=== PATIENT | male | born 1995 | race Two or more races ===

== ENCOUNTER 2021-10-28 17:41 | Inpatient (IN) | payer OTHER ==
[2021-10-28 21:56] VITALS: BMI 22.9
[2021-10-29] MEDS ORDERED: NALOXONE HCL (KLOXXADO) 8 MG SPRAY NS PRN (00:12)
[2021-10-29] MEDS ORDERED: LOPERAMIDE HCL 2 MG CAPSULE PO PRN (00:12)
[2021-10-29] MEDS ORDERED: BISMUTH SUBSALICYLATE 524 MG/30 ML PO PRN (00:12)
[2021-10-29] MEDS ORDERED: BENZOCAINE/MENTHOL (CHLORASEPTIC ) LOZENGE MM PRN (00:12)
[2021-10-29] MEDS ORDERED: MAGNESIUM CITRATE 300 ML BOTTLE PO PRN (00:12)
[2021-10-29] MEDS ORDERED: MAG HYDROX/AL HYDROX/SIMETH 30 ML UNIT-DOSE CUP PO PRN (00:12)
[2021-10-29] MEDS ORDERED: ONDANSETRON *ODT* 4 MG TABLET SL PRN (00:12)
[2021-10-29] MEDS ORDERED: DICYCLOMINE HCL 10 MG CAPSULE PO PRN (00:12)
[2021-10-29] MEDS ORDERED: NICOTINE POLACRILEX 2 MG GUM BUC PRN (00:12)
[2021-10-29] MEDS ORDERED: IBUPROFEN 400 MG TABLET (FP) PO PRN (00:12)
[2021-10-29] MEDS ORDERED: ACETAMINOPHEN 325 MG TABLET (FP) PO PRN ×2 (00:12)
[2021-10-29] MEDS ORDERED: MAGNESIUM HYDROX 2400MG/30ML ORAL SUSPENSION 30 ML CUP PO PRN (00:12)
[2021-10-29] MEDS ORDERED: cloNIDine HCL 0.1 MG TABLET PO ONE (00:18)
[2021-10-29] MEDS ORDERED: cloNIDine HCL 0.1 MG TABLET ONE (00:40)
[2021-10-29] MEDS: chlordiazePOXIDE HCL 25 MG CAPSULE PO PRN ×2 (02:04→13:02)
[2021-10-29] MEDS: IBUPROFEN 600 MG TABLET (FP) PO PRN (02:05)
[2021-10-29] MEDS: METHOCARBAMOL 500 MG TABLET PO PRN ×3 (02:05→22:11)
[2021-10-29] MEDS: chlordiazePOXIDE HCL 25 MG CAPSULE PO SCH ×4 (05:55→22:11)
[2021-10-29] MEDS: PRENATAL VITAMINS W/ FOLIC ACID TABLET (FP) PO SCH (10:42)
[2021-10-29] MEDS: NICOTINE 14 MG/24 HOURS TOPICAL PATCH TD SCH (10:42)
[2021-10-29] MEDS: THIAMINE HCL 100 MG TABLET (FP) PO SCH (22:11)
[2021-10-29] MEDS: MELATONIN 5 MG TABLETS PO SCH (22:11)
[2021-10-30] MEDS: IBUPROFEN 600 MG TABLET (FP) PO PRN ×2 (02:55→18:33)
[2021-10-30] MEDS: METHOCARBAMOL 500 MG TABLET PO PRN ×3 (03:53→22:11)
[2021-10-30] MEDS: chlordiazePOXIDE HCL 25 MG CAPSULE PO SCH ×4 (06:36→22:07)
[2021-10-30] MEDS: PRENATAL VITAMINS W/ FOLIC ACID TABLET (FP) PO SCH (10:26)
[2021-10-30] MEDS: NICOTINE 14 MG/24 HOURS TOPICAL PATCH TD SCH (10:27)
[2021-10-30 13:29] LABS: HEMATOCRIT 35.4 % (35.4-49); HEMOGLOBIN 11.6 GM/dL (11.7-16.9); MCH 26.8 pg (25.7-33.7); MCHC 32.9 g/dl (32.0-35.9); MEAN CELL VOLUME 81.4 fl (80-96); MEAN PLT VOLUME 10.9 fl (7.5-11.1); PLATELET COUNT 122 10^3/uL (134-434); RBC 4.35 M/mm3 (4.00-5.60); RDW 15.5 % (11.9-15.9); WHITE BLOOD COUNT 3.4 K/mm3 (4.0-10.0)
[2021-10-30 13:34] LABS: ALBUMIN 3.5 g/dl (3.4-5.0); BLOOD UREA NITROGEN 16.7 mg/dL (7-18); CALCIUM 8.5 mg/dL (8.5-10.1)
[2021-10-30 13:36] LABS: CREATININE 0.8 mg/dL (0.55-1.3)
[2021-10-30 13:38] LABS: BILIRUBIN,TOTAL 0.9 mg/dL (0.2-1); TOT PROT 6.7 g/dl (6.4-8.2)
[2021-10-30] MEDS ORDERED: amLODIPine BESYLATE 10 MG TABLET (FP) PO ONE (13:38)
[2021-10-30] MEDS ORDERED: POTASSIUM CHLORIDE TABS 20 MEQ TABLET.ER (FP) PO ONE ×2 (13:50→20:00)
[2021-10-30] MEDS: chlordiazePOXIDE HCL 25 MG CAPSULE PO PRN (14:58)
[2021-10-30 17:36] VITALS: RESP 18
[2021-10-30] MEDS: THIAMINE HCL 100 MG TABLET (FP) PO SCH (22:07)
[2021-10-30] MEDS: MELATONIN 5 MG TABLETS PO SCH (22:07)
[2021-10-31] MEDS ORDERED: chlordiazePOXIDE HCL 10 MG CAPSULE PO PRN
[2021-10-31] MEDS: METHOCARBAMOL 500 MG TABLET PO PRN (05:05)
[2021-10-31] MEDS: chlordiazePOXIDE HCL 10 MG CAPSULE PO SCH ×2 (05:06→10:17)
[2021-10-31] MEDS: PRENATAL VITAMINS W/ FOLIC ACID TABLET (FP) PO SCH (09:53)
[2021-10-31] MEDS: NICOTINE 14 MG/24 HOURS TOPICAL PATCH TD SCH (09:54)
[2021-10-31] MEDS ORDERED: amLODIPine BESYLATE 5 MG TABLET (FP) PO SCH (10:00)
[2021-10-31 13:02] VITALS: BP 154/100; PULSE 104; TEMP 98.6
[2021-11-01] MEDS ORDERED: chlordiazePOXIDE HCL 10 MG CAPSULE PO SCH (05:00)
[2021-11-02] MEDS ORDERED: chlordiazePOXIDE HCL 10 MG CAPSULE PO ONE (05:00)
== END 2021-10-31 13:45 | disposition left against medical advice (07) | DRG 770 ==
LOC: YASAS 17:41 → Y3N 10-29 01:19
PROVIDERS: ADMIT Allergy & Immunology; ATTEND Psychiatry & Neurology Addiction Medicine
PROC: HZ2ZZZZ Detoxification Services for Substance Abuse Treatment (ICD-10-PCS; principal; 2021-10-29)
DX: F10.230 Alcohol dependence with withdrawal, uncomplicated (principal); F19.280 Other psychoactive substance dependence with psychoactive substance-induced anxiety disorder; F90.9 Attention-deficit hyperactivity disorder, unspecified type; D69.6 Thrombocytopenia, unspecified; E87.6 Hypokalemia; I10 Essential (primary) hypertension; R73.9 Hyperglycemia, unspecified; Z87.19 Personal history of other diseases of the digestive system
CPT/HCPCS: 36415; 80053; 82947; 83036; 84132; 85027; 86780; C9803-CS; Q0162; U0003; U0005

== ENCOUNTER 2021-11-12 03:03 | Inpatient (IN) | payer OTHER ==
[2021-11-12 03:19] VITALS: BMI 22.1
[2021-11-12] MEDS ORDERED: BISMUTH SUBSALICYLATE 524 MG/30 ML PO PRN (07:24)
[2021-11-12] MEDS ORDERED: IBUPROFEN 400 MG TABLET (FP) PO PRN (07:24)
[2021-11-12] MEDS ORDERED: NICOTINE POLACRILEX 2 MG GUM BUC PRN (07:24)
[2021-11-12] MEDS ORDERED: MAGNESIUM CITRATE 300 ML BOTTLE PO PRN (07:24)
[2021-11-12] MEDS ORDERED: NALOXONE HCL (KLOXXADO) 8 MG SPRAY NS PRN (07:24)
[2021-11-12] MEDS ORDERED: ACETAMINOPHEN 325 MG TABLET (FP) PO PRN (07:24)
[2021-11-12] MEDS ORDERED: MAGNESIUM HYDROX 2400MG/30ML ORAL SUSPENSION 30 ML CUP PO PRN (07:24)
[2021-11-12] MEDS ORDERED: LOPERAMIDE HCL 2 MG CAPSULE PO PRN (07:24)
[2021-11-12] MEDS ORDERED: DICYCLOMINE HCL 10 MG CAPSULE PO PRN (07:24)
[2021-11-12] MEDS ORDERED: MAG HYDROX/AL HYDROX/SIMETH 30 ML UNIT-DOSE CUP PO PRN (07:24)
[2021-11-12] MEDS ORDERED: BENZOCAINE/MENTHOL (CHLORASEPTIC ) LOZENGE MM PRN (07:24)
[2021-11-12] MEDS ORDERED: ONDANSETRON *ODT* 4 MG TABLET SL PRN (07:24)
[2021-11-12] MEDS ORDERED: cloNIDine HCL 0.1 MG TABLET PO ONE (07:29)
[2021-11-12] MEDS: PRENATAL VITAMINS W/ FOLIC ACID TABLET (FP) PO SCH (09:21)
[2021-11-12] MEDS: NICOTINE 14 MG/24 HOURS TOPICAL PATCH TD SCH (09:21)
[2021-11-12] MEDS ORDERED: diazePAM 5 MG TABLET ONE (11:08)
[2021-11-12] MEDS: diazePAM 5 MG TABLET PO SCH ×3 (11:10→23:20)
[2021-11-12] MEDS: IBUPROFEN 600 MG TABLET (FP) PO PRN (12:13)
[2021-11-12] MEDS: METHOCARBAMOL 500 MG TABLET PO PRN (12:13)
[2021-11-12] MEDS: diazePAM 5 MG TABLET PO PRN ×2 (15:04→21:51)
[2021-11-12] MEDS: THIAMINE HCL 100 MG TABLET (FP) PO SCH (21:51)
[2021-11-12] MEDS: MELATONIN 5 MG TABLETS PO SCH (21:51)
[2021-11-13] MEDS: diazePAM 5 MG TABLET PO SCH ×4 (05:46→22:38)
[2021-11-13] MEDS: PRENATAL VITAMINS W/ FOLIC ACID TABLET (FP) PO SCH (10:42)
[2021-11-13] MEDS: cloNIDine HCL 0.1 MG TABLET PO SCH (10:43)
[2021-11-13] MEDS: NICOTINE 14 MG/24 HOURS TOPICAL PATCH TD SCH (10:44)
[2021-11-13 11:16] LABS: HEMATOCRIT 35.9 % (35.4-49); HEMOGLOBIN 11.4 GM/dL (11.7-16.9); MCH 26.4 pg (25.7-33.7); MCHC 31.8 g/dl (32.0-35.9); MEAN PLT VOLUME 8.8 fl (7.5-11.1); PLATELET COUNT 130 10^3/uL (134-434); RBC 4.33 M/mm3 (4.00-5.60); RDW 18.1 % (11.9-15.9); WHITE BLOOD COUNT 3.1 K/mm3 (4.0-10.0)
[2021-11-13 11:45] LABS: ALBUMIN 3.1 g/dl (3.4-5.0); BLOOD UREA NITROGEN 18.4 mg/dL (7-18); CALCIUM 8.9 mg/dL (8.5-10.1)
[2021-11-13 11:47] LABS: CREATININE 0.8 mg/dL (0.55-1.3)
[2021-11-13 11:49] LABS: BILIRUBIN,TOTAL 0.6 mg/dL (0.2-1)
[2021-11-13] MEDS: diazePAM 5 MG TABLET PO PRN ×2 (12:29→17:00)
[2021-11-13 12:37] LABS: HIV INTERPRETATION NEGATIVE (NEGATIVE)
[2021-11-13] MEDS: IBUPROFEN 600 MG TABLET (FP) PO PRN (16:59)
[2021-11-13] MEDS: THIAMINE HCL 100 MG TABLET (FP) PO SCH (22:34)
[2021-11-13] MEDS: METHOCARBAMOL 500 MG TABLET PO PRN (22:36)
[2021-11-13] MEDS: MELATONIN 5 MG TABLETS PO SCH (22:37)
[2021-11-14] MEDS: diazePAM 5 MG TABLET PO SCH ×3 (05:51→22:23)
[2021-11-14] MEDS ORDERED: POTASSIUM CHLORIDE ORAL LIQUID 20 MEQ/15 ML PO ONE (09:13)
[2021-11-14] MEDS: PRENATAL VITAMINS W/ FOLIC ACID TABLET (FP) PO SCH (10:12)
[2021-11-14] MEDS: cloNIDine HCL 0.1 MG TABLET PO SCH (10:12)
[2021-11-14] MEDS: NICOTINE 14 MG/24 HOURS TOPICAL PATCH TD SCH (10:12)
[2021-11-14] MEDS: diazePAM 5 MG TABLET PO PRN ×2 (11:37→17:10)
[2021-11-14] MEDS: ACETAMINOPHEN 325 MG TABLET (FP) PO PRN (14:00)
[2021-11-14] MEDS: THIAMINE HCL 100 MG TABLET (FP) PO SCH (22:23)
[2021-11-14] MEDS: MELATONIN 5 MG TABLETS PO SCH (22:23)
[2021-11-14] MEDS: METHOCARBAMOL 500 MG TABLET PO PRN (22:23)
[2021-11-15] MEDS: diazePAM 5 MG TABLET PO SCH ×2 (06:09→18:11)
[2021-11-15] MEDS: PRENATAL VITAMINS W/ FOLIC ACID TABLET (FP) PO SCH (10:47)
[2021-11-15] MEDS: cloNIDine HCL 0.1 MG TABLET PO SCH (10:47)
[2021-11-15] MEDS: NICOTINE 14 MG/24 HOURS TOPICAL PATCH TD SCH (10:51)
[2021-11-15] MEDS ORDERED: hydrOXYzine PAMOATE 25 MG CAPSULE (FP) PO ONE (13:20)
[2021-11-15 17:05] VITALS: RESP 18
[2021-11-15] MEDS: ACETAMINOPHEN 325 MG TABLET (FP) PO PRN (18:12)
[2021-11-15] MEDS: THIAMINE HCL 100 MG TABLET (FP) PO SCH (22:19)
[2021-11-15] MEDS: MELATONIN 5 MG TABLETS PO SCH (22:19)
[2021-11-15] MEDS: METHOCARBAMOL 500 MG TABLET PO PRN (22:20)
[2021-11-16] MEDS ORDERED: diazePAM 5 MG TABLET PO ONE (06:00)
[2021-11-16 09:38] VITALS: BP 122/83; PULSE 70; TEMP 97.6
[2021-11-16] MEDS: cloNIDine HCL 0.1 MG TABLET PO SCH (10:57)
[2021-11-16] MEDS: PRENATAL VITAMINS W/ FOLIC ACID TABLET (FP) PO SCH (10:57)
[2021-11-16] MEDS: NICOTINE 14 MG/24 HOURS TOPICAL PATCH TD SCH (10:57)
== END 2021-11-16 13:44 | disposition home or self-care (01) | DRG 775 ==
LOC: SUATTDRO 03:03 → YASAS 03:03 → Y6N 10:45
PROVIDERS: ADMIT Allergy & Immunology; ATTEND Surgery
PROC: HZ2ZZZZ Detoxification Services for Substance Abuse Treatment (ICD-10-PCS; principal; 2021-11-12)
DX: F10.230 Alcohol dependence with withdrawal, uncomplicated (principal); F17.210 Nicotine dependence, cigarettes, uncomplicated; F19.280 Other psychoactive substance dependence with psychoactive substance-induced anxiety disorder; F41.9 Anxiety disorder, unspecified; F90.9 Attention-deficit hyperactivity disorder, unspecified type; I10 Essential (primary) hypertension; Z87.19 Personal history of other diseases of the digestive system
CPT/HCPCS: 36415; 80053; 82962; 84132; 85027; 86780; 87389; C9803-CS; U0003; U0005

== ENCOUNTER 2021-11-17 10:27 | Inpatient (IN) | payer OTHER ==
[2021-11-17 11:08] VITALS: BMI 22.9
[2021-11-17] MEDS ORDERED: MAG HYDROX/AL HYDROX/SIMETH 30 ML UNIT-DOSE CUP PO PRN (11:28)
[2021-11-17] MEDS ORDERED: MAGNESIUM CITRATE 300 ML BOTTLE PO PRN (11:28)
[2021-11-17] MEDS ORDERED: P-EPHED 60MG/TRIPROLIDI 2.5MG TABLET PO PRN (11:28)
[2021-11-17] MEDS ORDERED: guaiFENesin 200 MG/10 ML 10 ML UNIT-DOSE CUPS PO PRN (11:28)
[2021-11-17] MEDS ORDERED: LOPERAMIDE HCL 2 MG CAPSULE PO PRN (11:28)
[2021-11-17] MEDS: NICOTINE 7 MG/24 HOURS TOPICAL PATCH TD SCH (14:42)
[2021-11-17] MEDS: PRENATAL VITAMINS W/ FOLIC ACID TABLET (FP) PO SCH (14:42)
[2021-11-17] MEDS: IBUPROFEN 400 MG TABLET (FP) PO PRN (14:46)
[2021-11-17] MEDS: hydrOXYzine PAMOATE 25 MG CAPSULE (FP) PO PRN ×2 (14:47→21:12)
[2021-11-17] MEDS: NICOTINE 10 MG CARTRIDGE (INHALER) IH PRN (16:56)
[2021-11-17] MEDS: MELATONIN 5 MG TABLETS PO SCH (21:12)
[2021-11-17] MEDS: THIAMINE HCL 100 MG TABLET (FP) PO SCH (21:12)
[2021-11-17] MEDS: cloNIDine HCL 0.1 MG TABLET PO SCH (21:12)
[2021-11-18] MEDS ORDERED: DEXTROAMPHETAMINE/AMPHETAMINE 10 MG CAP.ER.24H PO SCH (07:00)
[2021-11-18] MEDS: PRENATAL VITAMINS W/ FOLIC ACID TABLET (FP) PO SCH (10:01)
[2021-11-18] MEDS: cloNIDine HCL 0.1 MG TABLET PO SCH ×2 (10:02→21:02)
[2021-11-18] MEDS: NICOTINE 7 MG/24 HOURS TOPICAL PATCH TD SCH (10:03)
[2021-11-18] MEDS: hydrOXYzine PAMOATE 25 MG CAPSULE (FP) PO PRN ×2 (14:33→21:02)
[2021-11-18] MEDS: ACETAMINOPHEN 325 MG TABLET (FP) PO PRN (14:33)
[2021-11-18] MEDS: IBUPROFEN 400 MG TABLET (FP) PO PRN (18:08)
[2021-11-18] MEDS: NICOTINE 10 MG CARTRIDGE (INHALER) IH PRN (18:57)
[2021-11-18] MEDS: MELATONIN 5 MG TABLETS PO SCH (21:02)
[2021-11-18] MEDS: THIAMINE HCL 100 MG TABLET (FP) PO SCH (21:02)
[2021-11-19] MEDS: cloNIDine HCL 0.1 MG TABLET PO SCH ×2 (09:52→21:24)
[2021-11-19] MEDS: NICOTINE 7 MG/24 HOURS TOPICAL PATCH TD SCH (09:52)
[2021-11-19] MEDS: PRENATAL VITAMINS W/ FOLIC ACID TABLET (FP) PO SCH (09:52)
[2021-11-19] MEDS: hydrOXYzine PAMOATE 25 MG CAPSULE (FP) PO PRN ×3 (09:53→21:24)
[2021-11-19 10:12] LABS: PH,URINE 7.5 (5.0-8.0); URINE APPEARANCE CLEAR; URINE BILIRUBIN NEGATIVE (NEGATIVE); URINE COLOR YELLOW; URINE GLUCOSE (UA) NEGATIVE (NEGATIVE); URINE KETONE NEGATIVE (NEGATIVE); URINE LEUK ESTERASE NEGATIVE (NEGATIVE); URINE NITRITE NEGATIVE (NEGATIVE); URINE PROTEIN NEGATIVE (NEGATIVE); URINE UROBILINOGEN 0.2 mg/dL (0.2-1.0)
[2021-11-19] MEDS: NICOTINE 10 MG CARTRIDGE (INHALER) IH PRN (13:32)
[2021-11-19] MEDS: THIAMINE HCL 100 MG TABLET (FP) PO SCH (21:24)
[2021-11-19] MEDS: MELATONIN 5 MG TABLETS PO SCH (21:24)
[2021-11-19] MEDS: IBUPROFEN 400 MG TABLET (FP) PO PRN (22:24)
[2021-11-20] MEDS: hydrOXYzine PAMOATE 25 MG CAPSULE (FP) PO PRN ×3 (09:47→21:31)
[2021-11-20] MEDS: PRENATAL VITAMINS W/ FOLIC ACID TABLET (FP) PO SCH (09:47)
[2021-11-20] MEDS: NICOTINE 7 MG/24 HOURS TOPICAL PATCH TD SCH (09:47)
[2021-11-20] MEDS: ACETAMINOPHEN 325 MG TABLET (FP) PO PRN (09:48)
[2021-11-20] MEDS: cloNIDine HCL 0.1 MG TABLET PO SCH ×2 (09:48→21:31)
[2021-11-20] MEDS: MAGNESIUM HYDROX 2400MG/30ML ORAL SUSPENSION 30 ML CUP PO PRN (09:50)
[2021-11-20] MEDS ORDERED: METHOCARBAMOL 500 MG TABLET PO ONE (13:15)
[2021-11-20] MEDS: MELATONIN 5 MG TABLETS PO SCH (21:31)
[2021-11-20] MEDS: THIAMINE HCL 100 MG TABLET (FP) PO SCH (21:31)
[2021-11-20] MEDS: IBUPROFEN 400 MG TABLET (FP) PO PRN (21:33)
[2021-11-21] MEDS: NICOTINE 7 MG/24 HOURS TOPICAL PATCH TD SCH (10:21)
[2021-11-21] MEDS: cloNIDine HCL 0.1 MG TABLET PO SCH ×2 (10:21→21:43)
[2021-11-21] MEDS: PRENATAL VITAMINS W/ FOLIC ACID TABLET (FP) PO SCH (10:21)
[2021-11-21] MEDS: hydrOXYzine PAMOATE 25 MG CAPSULE (FP) PO PRN ×3 (10:22→21:43)
[2021-11-21] MEDS: BUPRENORPHINE/NALOXONE 4 MG/1 MG FILM PACKET SL SCH (13:26)
[2021-11-21] MEDS: NICOTINE 10 MG CARTRIDGE (INHALER) IH PRN (14:54)
[2021-11-21] MEDS: MELATONIN 5 MG TABLETS PO SCH (21:43)
[2021-11-21] MEDS: THIAMINE HCL 100 MG TABLET (FP) PO SCH (21:43)
[2021-11-21] MEDS: METHOCARBAMOL 500 MG TABLET PO PRN (21:44)
[2021-11-22] MEDS: hydrOXYzine PAMOATE 25 MG CAPSULE (FP) PO PRN ×4 (06:36→21:31)
[2021-11-22] MEDS: cloNIDine HCL 0.1 MG TABLET PO SCH ×2 (10:22→21:30)
[2021-11-22] MEDS: PRENATAL VITAMINS W/ FOLIC ACID TABLET (FP) PO SCH (10:22)
[2021-11-22] MEDS: BUPRENORPHINE/NALOXONE 4 MG/1 MG FILM PACKET SL SCH (10:22)
[2021-11-22] MEDS: NICOTINE 7 MG/24 HOURS TOPICAL PATCH TD SCH (10:22)
[2021-11-22] MEDS: NICOTINE 10 MG CARTRIDGE (INHALER) IH PRN ×2 (16:22→23:05)
[2021-11-22] MEDS: ACETAMINOPHEN 325 MG TABLET (FP) PO PRN (16:48)
[2021-11-22] MEDS: MELATONIN 5 MG TABLETS PO SCH (21:29)
[2021-11-22] MEDS: THIAMINE HCL 100 MG TABLET (FP) PO SCH (21:29)
[2021-11-22] MEDS: METHOCARBAMOL 500 MG TABLET PO PRN (21:30)
[2021-11-23] MEDS: IBUPROFEN 400 MG TABLET (FP) PO PRN (06:48)
[2021-11-23] MEDS: hydrOXYzine PAMOATE 25 MG CAPSULE (FP) PO PRN ×4 (06:49→21:25)
[2021-11-23] MEDS: BUPRENORPHINE/NALOXONE 4 MG/1 MG FILM PACKET SL SCH (09:56)
[2021-11-23] MEDS: PRENATAL VITAMINS W/ FOLIC ACID TABLET (FP) PO SCH (09:56)
[2021-11-23] MEDS: NICOTINE 10 MG CARTRIDGE (INHALER) IH PRN ×3 (09:56→19:08)
[2021-11-23] MEDS: NICOTINE 7 MG/24 HOURS TOPICAL PATCH TD SCH (09:56)
[2021-11-23] MEDS: cloNIDine HCL 0.1 MG TABLET PO SCH (09:58)
[2021-11-23] MEDS: METHOCARBAMOL 500 MG TABLET PO PRN (21:25)
[2021-11-23] MEDS: THIAMINE HCL 100 MG TABLET (FP) PO SCH (21:25)
[2021-11-23] MEDS ORDERED: SUVOREXANT 10 MG TABLET PO PRN (22:00)
[2021-11-24] MEDS: PRENATAL VITAMINS W/ FOLIC ACID TABLET (FP) PO SCH (10:08)
[2021-11-24] MEDS: NICOTINE 7 MG/24 HOURS TOPICAL PATCH TD SCH (10:08)
[2021-11-24] MEDS: hydrOXYzine PAMOATE 25 MG CAPSULE (FP) PO PRN ×3 (10:09→21:26)
[2021-11-24] MEDS: BUPRENORPHINE/NALOXONE 4 MG/1 MG FILM PACKET SL SCH ×2 (10:09→17:07)
[2021-11-24] MEDS: NICOTINE 10 MG CARTRIDGE (INHALER) IH PRN ×2 (10:09→18:32)
[2021-11-24] MEDS: METHOCARBAMOL 500 MG TABLET PO PRN (21:26)
[2021-11-24] MEDS: cloNIDine HCL 0.1 MG TABLET PO PRN (21:26)
[2021-11-24] MEDS: THIAMINE HCL 100 MG TABLET (FP) PO SCH (21:26)
[2021-11-24 22:47] VITALS: RESP 18
[2021-11-25] MEDS: NICOTINE 10 MG CARTRIDGE (INHALER) IH PRN ×3 (08:52→22:17)
[2021-11-25] MEDS: PRENATAL VITAMINS W/ FOLIC ACID TABLET (FP) PO SCH (10:06)
[2021-11-25] MEDS: NICOTINE 7 MG/24 HOURS TOPICAL PATCH TD SCH (10:06)
[2021-11-25] MEDS: BUPRENORPHINE/NALOXONE 4 MG/1 MG FILM PACKET SL SCH ×2 (10:07→16:35)
[2021-11-25] MEDS: hydrOXYzine PAMOATE 25 MG CAPSULE (FP) PO PRN ×3 (10:07→21:29)
[2021-11-25] MEDS: MAGNESIUM HYDROX 2400MG/30ML ORAL SUSPENSION 30 ML CUP PO PRN (10:08)
[2021-11-25] MEDS: SUVOREXANT 15 MG TABLET PO PRN (21:28)
[2021-11-25] MEDS: METHOCARBAMOL 500 MG TABLET PO PRN (21:29)
[2021-11-25] MEDS: THIAMINE HCL 100 MG TABLET (FP) PO SCH (21:29)
[2021-11-26] MEDS: hydrOXYzine PAMOATE 25 MG CAPSULE (FP) PO PRN ×4 (06:48→21:22)
[2021-11-26] MEDS: MAGNESIUM HYDROX 2400MG/30ML ORAL SUSPENSION 30 ML CUP PO PRN (06:49)
[2021-11-26] MEDS: NICOTINE 10 MG CARTRIDGE (INHALER) IH PRN ×4 (08:40→23:01)
[2021-11-26] MEDS: PRENATAL VITAMINS W/ FOLIC ACID TABLET (FP) PO SCH (10:12)
[2021-11-26] MEDS: BUPRENORPHINE/NALOXONE 4 MG/1 MG FILM PACKET SL SCH ×2 (10:13→17:33)
[2021-11-26] MEDS: NICOTINE 7 MG/24 HOURS TOPICAL PATCH TD SCH (10:13)
[2021-11-26] MEDS: THIAMINE HCL 100 MG TABLET (FP) PO SCH (21:21)
[2021-11-26] MEDS: METHOCARBAMOL 500 MG TABLET PO PRN (21:21)
[2021-11-26] MEDS: SUVOREXANT 15 MG TABLET PO PRN (21:23)
[2021-11-26] MEDS: cloNIDine HCL 0.1 MG TABLET PO PRN (21:23)
[2021-11-27] MEDS: NICOTINE 10 MG CARTRIDGE (INHALER) IH PRN ×3 (07:17→21:32)
[2021-11-27] MEDS: BUPRENORPHINE/NALOXONE 4 MG/1 MG FILM PACKET SL SCH ×2 (09:56→16:51)
[2021-11-27] MEDS: PRENATAL VITAMINS W/ FOLIC ACID TABLET (FP) PO SCH (09:56)
[2021-11-27] MEDS: hydrOXYzine PAMOATE 25 MG CAPSULE (FP) PO PRN ×3 (09:57→21:30)
[2021-11-27] MEDS: NICOTINE 7 MG/24 HOURS TOPICAL PATCH TD SCH (09:57)
[2021-11-27] MEDS: THIAMINE HCL 100 MG TABLET (FP) PO SCH (21:30)
[2021-11-27] MEDS: METHOCARBAMOL 500 MG TABLET PO PRN (21:30)
[2021-11-28] MEDS: ACETAMINOPHEN 325 MG TABLET (FP) PO PRN (06:45)
[2021-11-28] MEDS: cloNIDine HCL 0.1 MG TABLET PO PRN (06:46)
[2021-11-28] MEDS: NICOTINE 10 MG CARTRIDGE (INHALER) IH PRN ×4 (06:47→23:24)
[2021-11-28] MEDS: PRENATAL VITAMINS W/ FOLIC ACID TABLET (FP) PO SCH (10:24)
[2021-11-28] MEDS: NICOTINE 7 MG/24 HOURS TOPICAL PATCH TD SCH (10:24)
[2021-11-28] MEDS: hydrOXYzine PAMOATE 25 MG CAPSULE (FP) PO PRN ×3 (10:25→21:26)
[2021-11-28] MEDS: BUPRENORPHINE/NALOXONE 4 MG/1 MG FILM PACKET SL SCH ×2 (10:25→16:55)
[2021-11-28] MEDS: METHOCARBAMOL 500 MG TABLET PO PRN (21:25)
[2021-11-28] MEDS: SUVOREXANT 15 MG TABLET PO PRN (21:25)
[2021-11-28] MEDS: THIAMINE HCL 100 MG TABLET (FP) PO SCH (21:26)
[2021-11-29] MEDS: hydrOXYzine PAMOATE 25 MG CAPSULE (FP) PO PRN ×3 (06:34→21:20)
[2021-11-29] MEDS: NICOTINE 10 MG CARTRIDGE (INHALER) IH PRN ×2 (08:19→16:07)
[2021-11-29] MEDS: NICOTINE 7 MG/24 HOURS TOPICAL PATCH TD SCH (10:00)
[2021-11-29] MEDS: PRENATAL VITAMINS W/ FOLIC ACID TABLET (FP) PO SCH (10:00)
[2021-11-29] MEDS: BUPRENORPHINE/NALOXONE 4 MG/1 MG FILM PACKET SL SCH ×2 (10:00→17:31)
[2021-11-29] MEDS: THIAMINE HCL 100 MG TABLET (FP) PO SCH (21:20)
[2021-11-29] MEDS: traZODone HCL 50 MG TABLET (FP) PO SCH (21:20)
[2021-11-29] MEDS: cloNIDine HCL 0.1 MG TABLET PO PRN (21:21)
[2021-11-29] MEDS: METHOCARBAMOL 500 MG TABLET PO PRN (21:22)
[2021-11-30] MEDS: PRENATAL VITAMINS W/ FOLIC ACID TABLET (FP) PO SCH (10:00)
[2021-11-30] MEDS: NICOTINE 7 MG/24 HOURS TOPICAL PATCH TD SCH (10:00)
[2021-11-30] MEDS: BUPRENORPHINE/NALOXONE 4 MG/1 MG FILM PACKET SL SCH ×2 (10:01→17:20)
[2021-11-30] MEDS: hydrOXYzine PAMOATE 25 MG CAPSULE (FP) PO PRN ×3 (10:02→21:37)
[2021-11-30] MEDS: NICOTINE 10 MG CARTRIDGE (INHALER) IH PRN ×2 (10:04→18:09)
[2021-11-30] MEDS: METHOCARBAMOL 500 MG TABLET PO PRN (21:35)
[2021-11-30] MEDS: cloNIDine HCL 0.1 MG TABLET PO PRN (21:35)
[2021-11-30] MEDS: traZODone HCL 50 MG TABLET (FP) PO SCH (21:35)
[2021-11-30] MEDS: THIAMINE HCL 100 MG TABLET (FP) PO SCH (21:36)
[2021-12-01] MEDS: NICOTINE 10 MG CARTRIDGE (INHALER) IH PRN (06:23)
[2021-12-01] MEDS: hydrOXYzine PAMOATE 25 MG CAPSULE (FP) PO PRN ×3 (06:23→21:32)
[2021-12-01] MEDS: PRENATAL VITAMINS W/ FOLIC ACID TABLET (FP) PO SCH (10:43)
[2021-12-01] MEDS: BUPRENORPHINE/NALOXONE 4 MG/1 MG FILM PACKET SL SCH ×2 (10:44→17:18)
[2021-12-01] MEDS: NICOTINE 7 MG/24 HOURS TOPICAL PATCH TD SCH (10:44)
[2021-12-01] MEDS: traZODone HCL 50 MG TABLET (FP) PO SCH (21:31)
[2021-12-01] MEDS: METHOCARBAMOL 500 MG TABLET PO PRN (21:31)
[2021-12-01] MEDS: THIAMINE HCL 100 MG TABLET (FP) PO SCH (21:31)
[2021-12-01] MEDS: MAGNESIUM HYDROX 2400MG/30ML ORAL SUSPENSION 30 ML CUP PO PRN (21:35)
[2021-12-02] MEDS: NICOTINE 7 MG/24 HOURS TOPICAL PATCH TD SCH (10:01)
[2021-12-02] MEDS: PRENATAL VITAMINS W/ FOLIC ACID TABLET (FP) PO SCH (10:01)
[2021-12-02] MEDS: hydrOXYzine PAMOATE 25 MG CAPSULE (FP) PO PRN ×2 (10:02→21:17)
[2021-12-02] MEDS: BUPRENORPHINE/NALOXONE 8 MG/2 MG FILM PACKET SL SCH (10:04)
[2021-12-02] MEDS: BUPRENORPHINE/NALOXONE 4 MG/1 MG FILM PACKET SL SCH (17:23)
[2021-12-02] MEDS: NICOTINE 10 MG CARTRIDGE (INHALER) IH PRN (18:43)
[2021-12-02] MEDS: THIAMINE HCL 100 MG TABLET (FP) PO SCH (21:17)
[2021-12-02] MEDS: traZODone HCL 50 MG TABLET (FP) PO SCH (21:17)
[2021-12-03] MEDS: NICOTINE 10 MG CARTRIDGE (INHALER) IH PRN ×3 (09:42→21:17)
[2021-12-03] MEDS: NICOTINE 7 MG/24 HOURS TOPICAL PATCH TD SCH (10:13)
[2021-12-03] MEDS: BUPRENORPHINE/NALOXONE 8 MG/2 MG FILM PACKET SL SCH (10:13)
[2021-12-03] MEDS: hydrOXYzine PAMOATE 25 MG CAPSULE (FP) PO PRN ×3 (10:13→21:16)
[2021-12-03] MEDS: PRENATAL VITAMINS W/ FOLIC ACID TABLET (FP) PO SCH (10:13)
[2021-12-03] MEDS: BUPRENORPHINE/NALOXONE 4 MG/1 MG FILM PACKET SL SCH (16:40)
[2021-12-03] MEDS: THIAMINE HCL 100 MG TABLET (FP) PO SCH (21:16)
[2021-12-03] MEDS: traZODone HCL 50 MG TABLET (FP) PO SCH (21:16)
[2021-12-03] MEDS: METHOCARBAMOL 500 MG TABLET PO PRN (21:17)
[2021-12-04] MEDS: hydrOXYzine PAMOATE 25 MG CAPSULE (FP) PO PRN ×3 (10:01→21:18)
[2021-12-04] MEDS: BUPRENORPHINE/NALOXONE 8 MG/2 MG FILM PACKET SL SCH (10:01)
[2021-12-04] MEDS: NICOTINE 7 MG/24 HOURS TOPICAL PATCH TD SCH (10:01)
[2021-12-04] MEDS: PRENATAL VITAMINS W/ FOLIC ACID TABLET (FP) PO SCH (10:01)
[2021-12-04] MEDS: MAGNESIUM HYDROX 2400MG/30ML ORAL SUSPENSION 30 ML CUP PO PRN (10:04)
[2021-12-04] MEDS: NICOTINE 10 MG CARTRIDGE (INHALER) IH PRN ×3 (10:39→21:20)
[2021-12-04] MEDS: BUPRENORPHINE/NALOXONE 4 MG/1 MG FILM PACKET SL SCH (17:19)
[2021-12-04] MEDS: THIAMINE HCL 100 MG TABLET (FP) PO SCH (21:18)
[2021-12-04] MEDS: traZODone HCL 50 MG TABLET (FP) PO SCH (21:18)
[2021-12-04] MEDS: METHOCARBAMOL 500 MG TABLET PO PRN (21:19)
[2021-12-04] MEDS: cloNIDine HCL 0.1 MG TABLET PO PRN (21:46)
[2021-12-05] MEDS: NICOTINE 7 MG/24 HOURS TOPICAL PATCH TD SCH (10:15)
[2021-12-05] MEDS: PRENATAL VITAMINS W/ FOLIC ACID TABLET (FP) PO SCH (10:15)
[2021-12-05] MEDS: BUPRENORPHINE/NALOXONE 8 MG/2 MG FILM PACKET SL SCH ×2 (10:16→17:21)
[2021-12-05] MEDS: hydrOXYzine PAMOATE 25 MG CAPSULE (FP) PO PRN ×3 (10:16→21:26)
[2021-12-05] MEDS: NICOTINE 10 MG CARTRIDGE (INHALER) IH PRN ×2 (10:52→18:13)
[2021-12-05] MEDS: traZODone HCL 50 MG TABLET (FP) PO SCH (21:26)
[2021-12-05] MEDS: METHOCARBAMOL 500 MG TABLET PO PRN (21:26)
[2021-12-05] MEDS: THIAMINE HCL 100 MG TABLET (FP) PO SCH (21:26)
[2021-12-06] MEDS: NICOTINE 10 MG CARTRIDGE (INHALER) IH PRN ×3 (09:06→22:16)
[2021-12-06] MEDS: PRENATAL VITAMINS W/ FOLIC ACID TABLET (FP) PO SCH (10:01)
[2021-12-06] MEDS: NICOTINE 7 MG/24 HOURS TOPICAL PATCH TD SCH (10:01)
[2021-12-06] MEDS: hydrOXYzine PAMOATE 25 MG CAPSULE (FP) PO PRN ×3 (10:01→21:16)
[2021-12-06] MEDS: BUPRENORPHINE/NALOXONE 8 MG/2 MG FILM PACKET SL SCH ×2 (10:02→17:30)
[2021-12-06] MEDS: traZODone HCL 50 MG TABLET (FP) PO SCH (21:15)
[2021-12-06] MEDS: THIAMINE HCL 100 MG TABLET (FP) PO SCH (21:16)
[2021-12-06] MEDS: METHOCARBAMOL 500 MG TABLET PO PRN (21:16)
[2021-12-07] MEDS: PRENATAL VITAMINS W/ FOLIC ACID TABLET (FP) PO SCH (09:44)
[2021-12-07] MEDS: NICOTINE 7 MG/24 HOURS TOPICAL PATCH TD SCH (09:44)
[2021-12-07] MEDS: hydrOXYzine PAMOATE 25 MG CAPSULE (FP) PO PRN ×3 (09:44→21:16)
[2021-12-07] MEDS: NICOTINE 10 MG CARTRIDGE (INHALER) IH PRN ×3 (09:45→22:34)
[2021-12-07] MEDS: BUPRENORPHINE/NALOXONE 8 MG/2 MG FILM PACKET SL SCH ×2 (09:45→17:17)
[2021-12-07] MEDS: THIAMINE HCL 100 MG TABLET (FP) PO SCH (21:16)
[2021-12-07] MEDS: METHOCARBAMOL 500 MG TABLET PO PRN (21:17)
[2021-12-07] MEDS: traZODone HCL 50 MG TABLET (FP) PO SCH (21:17)
[2021-12-08] MEDS: NICOTINE 10 MG CARTRIDGE (INHALER) IH PRN ×3 (08:02→17:01)
[2021-12-08] MEDS: PRENATAL VITAMINS W/ FOLIC ACID TABLET (FP) PO SCH (10:09)
[2021-12-08] MEDS: hydrOXYzine PAMOATE 25 MG CAPSULE (FP) PO PRN ×3 (10:10→21:19)
[2021-12-08] MEDS: NICOTINE 7 MG/24 HOURS TOPICAL PATCH TD SCH (10:10)
[2021-12-08] MEDS: BUPRENORPHINE/NALOXONE 8 MG/2 MG FILM PACKET SL SCH ×2 (10:10→16:56)
[2021-12-08] MEDS: traZODone HCL 50 MG TABLET (FP) PO SCH (21:18)
[2021-12-08] MEDS: THIAMINE HCL 100 MG TABLET (FP) PO SCH (21:19)
[2021-12-08] MEDS: METHOCARBAMOL 500 MG TABLET PO PRN (21:19)
[2021-12-09] MEDS: PRENATAL VITAMINS W/ FOLIC ACID TABLET (FP) PO SCH (10:04)
[2021-12-09] MEDS: hydrOXYzine PAMOATE 25 MG CAPSULE (FP) PO PRN ×3 (10:04→21:13)
[2021-12-09] MEDS: BUPRENORPHINE/NALOXONE 8 MG/2 MG FILM PACKET SL SCH ×2 (10:04→17:17)
[2021-12-09] MEDS: NICOTINE 7 MG/24 HOURS TOPICAL PATCH TD SCH (10:04)
[2021-12-09] MEDS: NICOTINE 10 MG CARTRIDGE (INHALER) IH PRN ×3 (10:18→21:14)
[2021-12-09] MEDS: traZODone HCL 50 MG TABLET (FP) PO SCH (21:12)
[2021-12-09] MEDS: THIAMINE HCL 100 MG TABLET (FP) PO SCH (21:12)
[2021-12-09] MEDS: METHOCARBAMOL 500 MG TABLET PO PRN (21:13)
[2021-12-10] MEDS: NICOTINE 10 MG CARTRIDGE (INHALER) IH PRN ×3 (08:01→21:19)
[2021-12-10] MEDS: BUPRENORPHINE/NALOXONE 8 MG/2 MG FILM PACKET SL SCH ×2 (09:44→17:17)
[2021-12-10] MEDS: hydrOXYzine PAMOATE 25 MG CAPSULE (FP) PO PRN ×3 (09:44→21:18)
[2021-12-10] MEDS: PRENATAL VITAMINS W/ FOLIC ACID TABLET (FP) PO SCH (09:44)
[2021-12-10] MEDS: NICOTINE 7 MG/24 HOURS TOPICAL PATCH TD SCH (09:45)
[2021-12-10] MEDS: traZODone HCL 50 MG TABLET (FP) PO SCH (21:18)
[2021-12-10] MEDS: THIAMINE HCL 100 MG TABLET (FP) PO SCH (21:18)
[2021-12-10] MEDS: METHOCARBAMOL 500 MG TABLET PO PRN (21:18)
[2021-12-11 07:40] VITALS: TEMP 97
[2021-12-11] MEDS: NICOTINE 10 MG CARTRIDGE (INHALER) IH PRN ×2 (08:53→18:56)
[2021-12-11] MEDS: PRENATAL VITAMINS W/ FOLIC ACID TABLET (FP) PO SCH (09:38)
[2021-12-11] MEDS: NICOTINE 7 MG/24 HOURS TOPICAL PATCH TD SCH (09:39)
[2021-12-11] MEDS: hydrOXYzine PAMOATE 25 MG CAPSULE (FP) PO PRN ×3 (09:39→21:22)
[2021-12-11] MEDS: BUPRENORPHINE/NALOXONE 8 MG/2 MG FILM PACKET SL SCH ×2 (09:39→17:39)
[2021-12-11 21:12] VITALS: BP 142/92; PULSE 100
[2021-12-11] MEDS: METHOCARBAMOL 500 MG TABLET PO PRN (21:22)
[2021-12-11] MEDS: traZODone HCL 50 MG TABLET (FP) PO SCH (21:22)
[2021-12-11] MEDS: THIAMINE HCL 100 MG TABLET (FP) PO SCH (21:22)
[2021-12-12] MEDS: BUPRENORPHINE/NALOXONE 8 MG/2 MG FILM PACKET SL SCH (09:40)
[2021-12-12] MEDS: PRENATAL VITAMINS W/ FOLIC ACID TABLET (FP) PO SCH (09:40)
[2021-12-12] MEDS: hydrOXYzine PAMOATE 25 MG CAPSULE (FP) PO PRN (09:41)
[2021-12-12] MEDS: NICOTINE 7 MG/24 HOURS TOPICAL PATCH TD SCH (09:41)
[2021-12-12] MEDS: NICOTINE 10 MG CARTRIDGE (INHALER) IH PRN (09:59)
== END 2021-12-12 10:17 | disposition home or self-care (01) | DRG 772 ==
LOC: YASAS 10:27 → Y5N 14:25
PROVIDERS: ADMIT Allergy & Immunology; ATTEND Psychiatry & Neurology Pain Medicine
PROC: HZ42ZZZ Group Counseling for Substance Abuse Treatment, Cognitive-Behavioral (ICD-10-PCS; principal; 2021-11-17)
DX: F11.20 Opioid dependence, uncomplicated (principal); F10.20 Alcohol dependence, uncomplicated; F17.210 Nicotine dependence, cigarettes, uncomplicated; F90.9 Attention-deficit hyperactivity disorder, unspecified type; G47.00 Insomnia, unspecified; I10 Essential (primary) hypertension; Z87.19 Personal history of other diseases of the digestive system; Z56.0 Unemployment, unspecified; Z59.01 Sheltered homelessness
CPT/HCPCS: 36415; 81003; 82962; 86803; C9803-CS; U0003; U0005